=== PATIENT | female | born 1975 | race Caucasian/White ===

== ENCOUNTER 2024-02-18 16:03 | Emergency (ER) | payer OTHER ==
[~2024-02-18] VITALS: Ht 162.6 cm; Wt 72.0 kg
[2024-02-18 16:21] VITALS: BP 148/74; PULSE 75; RESP 20; TEMP 98.2; O2SAT 99
[2024-02-18] MEDS ORDERED: METH-653 MT (18:53)
[2024-02-18] MEDS ORDERED: ACET-2708 MT (18:53)
[2024-02-18] MEDS: METHOCARBAMOL 500MG TABLET PO ONE (19:12)
[2024-02-18] MEDS: KETOROLAC 60MG/2ML VIAL IM ONE (19:12)
== END 2024-02-18 19:13 | disposition home or self-care (01) ==
LOC: ER 16:03
DX: Z04.1 Encounter for examination and observation following transport accident (principal); V98.8XXA Other specified transport accidents, initial encounter; Y93.89 Activity, other specified; Y92.89 Other specified places as the place of occurrence of the external cause; Y99.8 Other external cause status
CPT/HCPCS: 99283